=== PATIENT | male | born 2000 | race Caucasian/White ===

== ENCOUNTER 2022-02-28 19:32 | Emergency (ER) | payer OTHER ==
--- NOTE | 2022-02-28 20:07 | EDPHYS ---
Physician Documentation [facility] Name: Eriberto Wilson Age: 21 yrs Sex: Male : 2000 Arrival Date: 02/28/2022 Time: 19:37 Bed Treatment Private MD: ED Physician Rito Chadwick HPI: 02/28 19:58 This 21 yrs old Male presents to ER via Unassigned with complaints of Hemorrhoids. rn 19:58 The patient presents to the emergency department with pain in the rectal area, that is rn moderate. Onset: The symptoms/episode began/occurred 3 day(s) ago. Modifying factors: The symptoms are alleviated by sitz baths, The symptoms are aggravated by bowel movement, sitting position. The patient has experienced similar episodes in the past. The patient has not recently seen a physician. Pt reports 2-3 days of hemorrhoids, slowly getting worse, improves with sitz baths, has had hemorrhoid problems multiple times in past. No fever. No drainage. Reports strains a lot with bowel movements and at work. Has had bad reaction to preparation H in past so can't use it. . Historical: - Allergies: 20:01 No Known Allergies; jh5 - Immunization history:: Adult Immunizations up to date. - Social history:: Smoking status: Patient denies any tobacco usage or history of. - Family history:: not pertinent. - Hospitalizations: : No recent hospitalization is reported. ROS: 19:58 Constitutional: Negative for fever, chills, and weight loss, Cardiovascular: Negative rn for chest pain, palpitations, and edema, Respiratory: Negative for shortness of breath, cough, wheezing, and pleuritic chest pain, Abdomen/GI: + anal pain Exam: 19:58 Constitutional: This is a well developed, well nourished patient who is awake, alert, rn and in no acute distress. Ambulatory to room, without assistance. Abdomen/GI: + multiple small external hemorrhoids, appear to be thrombosed with blue hue. No evidence of perirectal abscess or focal swelling of soft tissues. Vital Signs: 19:58 BP 138 / 87; Pulse 78; Resp 18; Temp 98.8; Pulse Ox 100% ; Weight 117.93 kg; Height 5 jh5 ft. 10 in. (177.80 cm); Pain 10/10; 19:58 Body Mass Index 37.31 (117.93 kg, 177.80 cm) jh5 MDM: 19:37 Patient medically screened. rn 19:58 Differential diagnosis: hemorrhoids, thrombosed hemorrhoids. Data reviewed: vital rn signs, nurses notes, and as a result, I will discharge patient. Counseling: I had a detailed discussion with the patient and/or guardian regarding: the historical points, exam findings, and any diagnostic results supporting the discharge/admit diagnosis, the need for outpatient follow up, to return to the emergency department if symptoms worsen or persist or if there are any questions or concerns that arise at home. Special discussion: I discussed with the patient/guardian in detail that at this point there is no indication for admission to the hospital. It is understood, however, that if the symptoms persist or worsen the patient needs to return immediately for re-evaluation. Based on the history and exam findings, there is no indication for further emergent testing or inpatient evaluation. I discussed with the patient/guardian the need to see the hand drawer in for further evaluation of the symptoms. I discussed with the patient/guardian the need to see the general surgeon for further evaluation of the symptoms. ED course: Had long discussion with patient, given multiple small thrombosed hemorrhoids, made joint decision to try conservative treatment as opposed to procedure at this time. Will prescribe steroidal cream and given multiple tips for sitz baths and dietary changes with stool softeners. . Administered Medications: No medications were administered Disposition Summary: 02/28/22 20:06 Discharge Ordered Location: Home rn Problem: new rn Symptoms: are unchanged rn Condition: Stable rn Diagnosis - Other hemorrhoids rn Followup: rn - With: Private Physician - When: As needed - Reason: Recheck today's complaints, Re-evaluation by your physician Discharge Instructions: - Discharge Summary Sheet rn - High-Fiber Diet rn - Hemorrhoids rn Forms: - Medication Reconciliation Form rn - Thank You Letter rn - Antibiotic international representative - Prescription Opioid Use rn Prescriptions: - Anusol-HC 2.5 % Topical cream with perineal applicator - apply 1 application by TOPICAL route 4 times per day As needed; 1 tube; rn Refills: 0, Product Selection Permitted Signatures: Rito Chadwick MD MD rn Rees, Jessica, RN RN jh5
--- NOTE | 2022-02-28 20:07 | ER ---
Nurse's Notes [facility] Name: Eriberto Wilson Age: 21 yrs Sex: Male : 2000 Arrival Date: 02/28/2022 Time: 19:37 Bed Treatment Private MD: Diagnosis: Other hemorrhoids Presentation: 02/28 19:58 Chief complaint: Patient states: Pt has experienced hemorrhoids x4 day, last 48 hours jh5 being worse. Coronavirus screen: Vaccine status: Patient reports receiving the 2nd dose of the covid vaccine. Client denies travel out of the [place] in the last 14 days. Ebola Screen: Patient negative for fever greater than or equal to 101.5 degrees Fahrenheit, and additional compatible Ebola Virus Disease symptoms Patient denies exposure to infectious person. Patient denies travel to an Ebola-affected area in the 21 days before illness onset. Initial Sepsis Screen: Does the patient meet any 2 criteria? No. Patient's initial sepsis screen is negative. Does the patient have a suspected source of infection? No. Patient's initial sepsis screen is negative. Risk Assessment: Do you want to hurt yourself or someone else? Patient reports no desire to harm self or others. Onset of symptoms. 19:58 Method Of Arrival: Ambulatory [facility] 19:58 Acuity: EKTA 5 5 Triage Assessment: 20:01 General: Appears in no apparent distress. uncomfortable, obese, well groomed, Behavior 5 is calm, cooperative, appropriate for age. Pain: Complains of pain in buttocks. Historical: - Allergies: 20:01 No Known Allergies; [facility] - Immunization history:: Adult Immunizations up to date. - Social history:: Smoking status: Patient denies any tobacco usage or history of. - Family history:: not pertinent. - Hospitalizations: : No recent hospitalization is reported. Screenin:02 Abuse screen: Denies threats or abuse. Denies injuries from another. Nutritional [facility] screening: No deficits noted. Tuberculosis screening: No symptoms or risk factors identified. Fall Risk None identified. Vital Signs: 19:58 BP 138 / 87; Pulse 78; Resp 18; Temp 98.8; Pulse Ox 100% ; Weight 117.93 kg; Height 5 5 ft. 10 in. (177.80 cm); Pain 10/10; 19:58 Body Mass Index 37.31 (117.93 kg, 177.80 cm) [facility] ED Course: 19:37 Patient arrived in ED. jj6 19:37 Rito Chadwick MD is Attending Physician. rn 20:00 Triage completed. 5 20:01 Arm band placed on right wrist. 5 20:02 Patient has correct armband on for positive identification. Call light in reach. Side 5 rails up X 1. 20:02 No provider procedures requiring assistance completed. 5 Administered Medications: No medications were administered Medication: 20:02 VIS not applicable for this client. [facility] Outcome: 20:06 Discharge ordered by . rn 20:16 Patient left the ED. [facility] Signatures: Rito Chadwick MD MD rn Jeffries, Jennifer jjRina Eller RN RN [facility]
[2022-02-28 20:57] VITALS: BP 138/87; TEMP 98.8; O2SAT 100
== END 2022-02-28 20:16 | disposition home or self-care (01) ==
LOC: ER 19:32
DX: K64.8 Other hemorrhoids (principal)
CPT/HCPCS: 99281